=== PATIENT | female | born 1955 | race Caucasian/White ===

== ENCOUNTER 2021-04-02 08:56 | Day surgery (SDC) | payer MEDICARE ==
[~2021-04-02] VITALS: Ht 170.2 cm; Wt 68.1 kg
[~2021-04-02 08:56] MED LIST: BIEST/PROG/TEST TOP; DHEA PO; ESTRA; LEVSOD100; LIOT5; NAPR220 PO; PROG100; T3/T4 SR PO; [UNRECOGNIZED DRUG - MIXTURE]
== END 2021-04-02 11:25 | disposition home or self-care (01) ==
LOC: ORSCSDS 08:56
PROVIDERS: Internal Medicine Gastroenterology
PROC: 0DBK8ZX Excision of Ascending Colon, Via Natural or Artificial Opening Endoscopic, Diagnostic (ICD-10-PCS; principal; 2021-04-02 10:45)
PROC: 0DBP8ZX Excision of Rectum, Via Natural or Artificial Opening Endoscopic, Diagnostic (ICD-10-PCS; principal; 2021-04-02 10:45)
PROC: 0DBM8ZX Excision of Descending Colon, Via Natural or Artificial Opening Endoscopic, Diagnostic (ICD-10-PCS; principal; 2021-04-02 10:45)
PROC: 0DBN8ZX Excision of Sigmoid Colon, Via Natural or Artificial Opening Endoscopic, Diagnostic (ICD-10-PCS; principal; 2021-04-02 10:45)
DX: Z12.11 Encounter for screening for malignant neoplasm of colon (principal); Z86.010 Personal history of colon polyps; D12.4 Benign neoplasm of descending colon; D12.2 Benign neoplasm of ascending colon; D12.5 Benign neoplasm of sigmoid colon; D12.8 Benign neoplasm of rectum; E03.9 Hypothyroidism, unspecified; F17.210 Nicotine dependence, cigarettes, uncomplicated; Z79.899 Other long term (current) drug therapy
CPT/HCPCS: 88305; J2704; J7120